=== PATIENT | female | born 1985 | race Caucasian/White ===

== ENCOUNTER 2017-10-01 23:15 | Emergency (ER) | payer OTHER ==
[~2017-10-01] VITALS: Ht 170.2 cm; Wt 131.8 kg
[2017-10-01] MEDS ORDERED: ALBU8HFA IH (23:27)
[2017-10-02] MEDS ORDERED: KETOROLAC TROMETHAMINE 30 MG/ML VIAL IM ONE (00:45)
[2017-10-02] MEDS ORDERED: ONDANSETRON HCL 4 MG/2 ML VIAL IM ONE (00:45)
[2017-10-02] MEDS ORDERED: HYDROCODONE/ACETAMINOPHEN 5-325 MG TABLET PO ONE (00:45)
[2017-10-02 02:35] VITALS: BP 125/79
== END 2017-10-02 02:38 | disposition home or self-care (01) ==
LOC: EMS 23:15
DX: S39.012A Strain of muscle, fascia and tendon of lower back, initial encounter (principal); J45.909 Unspecified asthma, uncomplicated; F32.9 Major depressive disorder, single episode, unspecified; Z79.899 Other long term (current) drug therapy; X58.XXXA Exposure to other specified factors, initial encounter; Y93.89 Activity, other specified; Y92.89 Other specified places as the place of occurrence of the external cause; Y99.8 Other external cause status
CPT/HCPCS: 72131; 96372; 99284; J1885; J2405

== ENCOUNTER 2018-05-24 11:00 | Emergency (ER) | payer OTHER ==
[~2018-05-24] VITALS: Ht 170.2 cm; Wt 118.2 kg
[~2018-05-24 11:00] MED LIST: ALBU8HFA IH
[2018-05-24] MEDS: SODIUM CHLORIDE 0.9% 1,000 ML IV ONE (12:06)
[2018-05-24] MEDS: KETOROLAC TROMETHAMINE 30 MG/ML VIAL IVP ONE (12:07)
[2018-05-24] MEDS: DEXAMETHASONE SOD PHOS 4 MG/ML 5 ML VIAL IVP ONE (12:07)
[2018-05-24] MEDS: ACETAMINOPHEN 500 MG TABLET PO ONE (12:07)
[2018-05-24 13:50] VITALS: BP 137/77
== END 2018-05-24 13:52 | disposition home or self-care (01) ==
LOC: EMS 11:00
DX: B34.9 Viral infection, unspecified (principal); J45.909 Unspecified asthma, uncomplicated; F32.9 Major depressive disorder, single episode, unspecified; Z79.899 Other long term (current) drug therapy
CPT/HCPCS: 71045; 87430; 96374; 96375; 99284; J1100; J1885; J7030

== ENCOUNTER 2018-11-08 18:59 | Emergency (ER) | payer OTHER | END 2018-11-08 19:20 | disposition left against medical advice (07) | LOC: EMS 19:00 | DX: F41.9 Anxiety disorder, unspecified (principal); Z53.21 Procedure and treatment not carried out due to patient leaving prior to being seen by health care provider ==

== ENCOUNTER 2021-04-01 21:14 | Emergency (ER) | payer OTHER ==
[~2021-04-01] VITALS: Ht 170.2 cm; Wt 118.2 kg
[2021-04-01 21:18] VITALS: BP 131/90
== END 2021-04-02 01:34 | disposition left against medical advice (07) ==
LOC: EMS 21:15
DX: M54.50 Low back pain, unspecified (principal); Z53.21 Procedure and treatment not carried out due to patient leaving prior to being seen by health care provider